=== PATIENT | male | born 1975 | race African-American/Black ===

== ENCOUNTER 2022-08-14 21:43 | Emergency (ER) | payer OTHER ==
[~2022-08-14] VITALS: Ht 167.6 cm; Wt 54.2 kg
[2022-08-15] MEDS ORDERED: FLUORESCEIN SODIUM 1MG/STRIP LEFTEYE ONE (02:30)
[2022-08-15] MEDS ORDERED: TETANUS, DIPHTHERIA, PERTUSSIS VAC/PF 0.5ML (>10YR OLD) IM ONE (02:30)
[2022-08-15] MEDS ORDERED: TETRACAINE 0.5% OPHTH DROPS 4ML LEFTEYE ONE (02:30)
[2022-08-15] MEDS ORDERED: ACETAMINOPHEN 325MG TABLET PO ONE (02:30)
[2022-08-15] MEDS ORDERED: NAPR-681 MT (05:44)
[2022-08-15] MEDS ORDERED: AMOX1TAB16 MT (05:44)
[2022-08-15 06:02] VITALS: BP 123/78
== END 2022-08-15 06:10 | disposition home or self-care (01) ==
LOC: ER 21:43
DX: S02.32XA Fracture of orbital floor, left side, initial encounter for closed fracture (principal); S02.40DA Maxillary fracture, left side, initial encounter for closed fracture; Y04.2XXA Assault by strike against or bumped into by another person, initial encounter; E11.9 Type 2 diabetes mellitus without complications; Y93.89 Activity, other specified; Y92.89 Other specified places as the place of occurrence of the external cause
CPT/HCPCS: 12011; 70486; 90471; 90715; 99284